=== PATIENT | female | born 1950 | race Caucasian/White ===

== ENCOUNTER 2020-03-16 11:15 | Day surgery (SDC) | payer MEDICARE ==
[2020-03-16] MEDS ORDERED: Sodium Chloride 0.9(Preservative Free) 10 ML IJ ONE (11:16)
[2020-03-16] MEDS ORDERED: Marcaine 0.5% SDV 10 ML IJ ONE (11:16)
[2020-03-16] MEDS ORDERED: Depo-Medrol 40 MG/ML IM ONE (11:16)
[2020-03-16] MEDS ORDERED: DIPRIVAN 200 MG/20 ML IV ONE (12:35)
[2020-03-16] MEDS ORDERED: Ketamine HCl 50 MG/ML ONE (12:35)
--- NOTE | 2020-03-16 14:04 | XRAY ---
Indication: Left L4-S1 transforaminal COSME. Intraoperative fluoroscopy was provided for 33 seconds. 2 digital spot images submitted for interpretation demonstrates posterior needle tips projecting over the expected course of the left L4 and L5 nerve roots. Small amount of contrast injected for both needle tip placement. Correlate with intraoperative findings/report.
--- NOTE | 2020-03-16 14:06 | XRAY ---
Indication: Left hip injection. Intraoperative fluoroscopy was provided for 12 seconds. Single prone digital spot image submitted for interpretation demonstrates needle tip projecting just lateral to the left femur head. Small amount of contrast injected for needle tip placement. Correlate with intraoperative findings/report.
--- NOTE | 2020-03-16 14:11 | XRAY ---
33 seconds fluoroscopy time in surgery for left L4-S1 transforminal COSME.
--- NOTE | 2020-03-16 14:11 | XRAY ---
12 seconds fluoroscopy time in surgery for left hip injection.
[2020-03-16] MEDS ORDERED: Lactated Ringers 1,000 ML IV ONE (14:33)
== END 2020-03-16 13:12 | disposition home or self-care (01) ==
LOC: SDC-PAIN 11:15
PROVIDERS: ATTEND Psychiatry & Neurology Pain Medicine
DX: M54.16 Radiculopathy, lumbar region (principal); M16.12 Unilateral primary osteoarthritis, left hip; Z79.899 Other long term (current) drug therapy
CPT/HCPCS: 20610; 64483; 64484; 72100; 73501; 77002; 77003; J1030; J2704; Q9966

== ENCOUNTER 2023-07-14 18:31 | Emergency (ER) | payer MEDICARE ==
[2023-07-14 21:14] VITALS: TEMP 98.1
--- NOTE | 2023-07-14 21:15 | ERPHSYRPT ---
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 Tender on exam. N/V intact. No toerh injuries or symptoms. Hx confirmed independently with relative as we needed input to describe the object and mech of trauma. discussed risk/benefit of xray with pt qnd family and they wish to proceed. - this was ordered and result discussed with pt and family. Method of Injury: direct blow Quality: constant, sharpness, throbbing Severity of Pain-Max: moderate Severity of Pain-Current: moderate Lower Extremities Pain: foot: right Modifying Factors: Improves With: immobilization, movement Associated Symptoms: other (pain walking) Allergies/Adverse Reactions: No Known Drug Allergies Allergy (Verified 07/14/23 20:53) Home Medications: Levothyroxine Sodium 150 Mcg [Synthroid 150 Mcg] 150 mcg PO DAILY 07/14/23 [History] Metformin HCl 500 mg [Glucophage 500 MG] 500 mg PO EVENING MEAL 07/14/23 [History] - Review of Systems Constitutional: No Fever, No Chills Eyes: No Symptoms Ears, Nose, & Throat: No Symptoms Respiratory: No Cough, No Dyspnea Cardiac: No Chest Pain, No Edema, No Syncope Abdominal/Gastrointestinal: No Abdominal Pain, No Nausea, No Vomiting, No Diarrhea Genitourinary Symptoms: No Dysuria Musculoskeletal: Injury, Joint Pain, Joint Swelling, No Back Pain, No Neck Pain Skin: No Rash Neurological: No Dizziness, No Focal Weakness, No Sensory Changes Psychological: No Symptoms Endocrine: No Symptoms Hematologic/Lymphatic: No Symptoms Immunological/Allergic: No Symptoms All Other Systems: Reviewed and Negative - Past Medical History Pertinent Past Medical History: No Neurological History: No Pertinent History ENT History: No Pertinent History Cardiac History: No Pertinent History Respiratory History: No Pertinent History Endocrine Medical History: No Pertinent History Musculoskeletal History: No Pertinent History GI Medical History: No Pertinent History History: No Pertinent History Psycho-Social History: Depression Female Reproductive Disorders: Other - Past Surgical History Past Surgical History: Yes Neuro Surgical History: No Pertinent History Cardiac: No Pertinent History Respiratory: No Pertinent History Gastrointestinal: Cholecystectomy Female Surgical History: Section, Hysterectomy Other Surgical History: TONSIL - Social History Smoking Status: Current every day smoker - Nursing Vital Signs Nursing Vital Signs: Initial Vital Signs Temperature 98.1 F 07/14/23 20:57 Pulse Rate 72 07/14/23 20:57 Respiratory Rate 16 07/14/23 20:57 Blood Pressure 143/108 07/14/23 20:57 O2 Sat by Pulse Oximetry 95 07/14/23 20:57 Pain Scale Pain Intensity 10 - Physical Exam General Appearance: no apparent distress, alert Eyes, Ears, Nose, Throat Exam: moist mucous membranes Neck Exam: non-tender, supple Cardiovascular/Respiratory Exam: chest non-tender, normal breath sounds, regular rate/rhythm, no respiratory distress Gastrointestinal/Abdominal Exam: non-tender, guarding Back Exam: normal inspection, No vertebral tenderness Hips Exam: bilateral: non-tender, normal inspection, normal range of motion, no evidence of injury Legs Exam: bilateral leg: non-tender, normal inspection, normal range of motion, no evidence of injury Knees Exam: bilateral knee: non-tender, normal inspection, normal range of motion, no evidence of injury Ankle Exam: bilateral ankle: non-tender, normal inspection, normal range of motion, no evidence of injury Foot Exam: right foot: bone tenderness, pain, soft tissue tenderness, swelling, left foot: non-tender, normal inspection, normal range of motion, no evidence of injury DTR - Lower Extremities Exam: knee (R): 2+, knee (L): 2+, ankle (R): 2+, ankle (L): 2+ Neuro/Tendon Exam: normal sensation, normal motor functions, normal tendon functions, no evidence tendon injury Mental Status Exam: alert, oriented x 3, cooperative Skin Exam: normal color, warm, dry Procedures - Splinting Location of Splint: Right, Foot Type of Splint: Walking Boot/Shoe Splint Applied By: ED Nurse Post-Proc Neuro Vasc Exam: neurovascular intact, good alignment, unchanged from pre-exam - Course Nursing assessment & vital signs reviewed: Yes - Radiology Exams Right Foot X-ray Interpretation: Reviewed by me, Non-displaced Fracture Ordered Tests: Active Orders 24 hr Category Date Time Status FOOT (MINIMUM 3 VIEWS) Stat Exams 07/14/23 21:10 Taken - Progress Progress: improved, re-examined Progress Note: 07/14/23 22:19 discussed risks and benefits of prescription pain med and pt declines. Counseled pt/family regarding: diagnosis, need for follow-up, rad results Medical Desision Making - Independent Historian Additional History obtained from: Family - Diagnostic Testing Diagnostic test were ordered, analyzed, and reviewed by me: Yes Radiological Interpretation: Reviewed by me - Risk of complications The pt has a mod risk of morbidity or mortality based on: Need for prescription drug management - Departure Departure Disposition: Home Clinical Impression: nondisplaced right foot fx Condition: Good Critical Care Time: No Referrals: FILIPE AYOUB GRADES 1 6 TUTOR [Primary Care Provider] - Follow up/PCP as directed Instructions: Foot Fracture (DC) Additional Instructions: follow- up with Dr. Alicea Saturday in clinic return meantime if any concerns. followup with your on blood pressure.
[2023-07-14 22:30] VITALS: O2SAT 96
[2023-07-14 22:33] VITALS: BP 112/83; PULSE 84; RESP 18
--- NOTE | 2023-07-15 07:18 | XRAY ---
Indication: Pain following trauma. Comparison: None 3 nonweightbearing views right foot demonstrates nondisplaced fracture 3rd proximal phalanx with soft tissue swelling. Elsewhere osteopenia, small heel spurs, and small cuboid accessory ossicle.
== END 2023-07-14 22:36 | disposition home or self-care (01) ==
LOC: ED 18:31
DX: S92.514A Nondisplaced fracture of proximal phalanx of right lesser toe(s), initial encounter for closed fracture (principal); W20.8XXA Other cause of strike by thrown, projected or falling object, initial encounter; Z79.84 Long term (current) use of oral hypoglycemic drugs; Z79.899 Other long term (current) drug therapy; Z72.0 Tobacco use
CPT/HCPCS: 73630; 99283; L4386